=== PATIENT | female | born 1965 | race Caucasian/White ===

== ENCOUNTER 2017-10-02 14:47 | Emergency (ER) | payer OTHER ==
[~2017-10-02] VITALS: Ht 162.5 cm; Wt 86.2 kg
[~2017-10-02 14:47] MED LIST: ALTOPREV20 MG PO; AMLODIPINE BESY10 MG PO; DAYPRO600 M1 PO; ESIDREX,ORETIC,25 MG PO; LOPRESSOR25 MG PO; MELOXICAM7.5 MG PO; MOTRIN800 MG PO; PEPCID20 MG PO; PRILOSEC20 MG PO; TRAMADOL HCL50 MG PO; [UNRECOGNIZED DRUG - OTHER] PO
[2017-10-02] MEDS ORDERED: CO Q-1010 M2 PO (14:55)
[2017-10-02] MEDS ORDERED: VITAMIN E100 UNI3 PO (14:56)
[2017-10-02] MEDS ORDERED: VITAMIN D400 UNI1 PO (14:57)
[2017-10-02 17:04] VITALS: BP 150/92
== END 2017-10-02 17:19 | disposition home or self-care (01) ==
LOC: ED 14:47
DX: M25.532 Pain in left wrist (principal); I10 Essential (primary) hypertension; M54.2 Cervicalgia; Z98.890 Other specified postprocedural states; Z79.899 Other long term (current) drug therapy; Z91.040 Latex allergy status; V49.88XA Car occupant (driver) (passenger) injured in other specified transport accidents, initial encounter; Y93.89 Activity, other specified; Y92.413 State road as the place of occurrence of the external cause; Y99.9 Unspecified external cause status

== ENCOUNTER 2017-10-11 13:08 | Emergency (ER) | payer OTHER ==
[~2017-10-11] VITALS: Ht 162.5 cm; Wt 95.3 kg
[~2017-10-11 13:08] MED LIST changes: +CO Q-1010 M2 PO; +VITAMIN D400 UNI1 PO; +VITAMIN E100 UNI3 PO
[2017-10-11] MEDS ORDERED: NAPROSYN500 MG PO (13:34)
[2017-10-11] MEDS ORDERED: CHLORZOXAZONE500 M2 PO (13:34)
[2017-10-11 14:33] VITALS: BP 180/90
== END 2017-10-11 15:22 | disposition home or self-care (01) ==
LOC: ED 13:08
DX: R20.2 Paresthesia of skin (principal); R03.0 Elevated blood-pressure reading, without diagnosis of hypertension; M25.532 Pain in left wrist; M25.511 Pain in right shoulder; R20.0 Anesthesia of skin; Z91.040 Latex allergy status; Z79.899 Other long term (current) drug therapy

== ENCOUNTER → 2019-04-06 | Outpatient (CLI) | payer OTHER ==
[~2019-04-06] MED LIST changes: +CHLORZOXAZONE500 M2 PO; +NAPROSYN500 MG PO
== END | disposition home or self-care (01) ==
LOC: MAMMO 13:30
DX: Z12.31 Encounter for screening mammogram for malignant neoplasm of breast (principal)

== ENCOUNTER → 2019-05-18 | Outpatient (CLI) | payer OTHER | END | disposition home or self-care (01) | LOC: US 13:52 | DX: D17.79 Benign lipomatous neoplasm of other sites (principal); N60.01 Solitary cyst of right breast; N63.12 Unspecified lump in the right breast, upper inner quadrant; N63.21 Unspecified lump in the left breast, upper outer quadrant; N63.23 Unspecified lump in the left breast, lower outer quadrant; N64.89 Other specified disorders of breast ==

== ENCOUNTER → 2019-06-03 | Outpatient (CLI) | payer OTHER | END | disposition home or self-care (01) | LOC: RAD 09:07 | DX: M99.01 Segmental and somatic dysfunction of cervical region (principal); M99.02 Segmental and somatic dysfunction of thoracic region; M99.03 Segmental and somatic dysfunction of lumbar region ==

== ENCOUNTER → 2019-06-09 | Outpatient (CLI) | payer OTHER | END | disposition home or self-care (01) | LOC: US 07:30 | DX: K76.0 Fatty (change of) liver, not elsewhere classified (principal); R79.89 Other specified abnormal findings of blood chemistry ==

== ENCOUNTER → 2019-11-02 | Outpatient (CLI) | payer OTHER | END | disposition home or self-care (01) | LOC: RAD 11:02 | DX: M47.816 Spondylosis without myelopathy or radiculopathy, lumbar region (principal); M47.817 Spondylosis without myelopathy or radiculopathy, lumbosacral region; M48.061 Spinal stenosis, lumbar region without neurogenic claudication; M48.07 Spinal stenosis, lumbosacral region; M17.0 Bilateral primary osteoarthritis of knee ==

== ENCOUNTER → 2019-11-17 | Outpatient (CLI) | payer OTHER | END | disposition home or self-care (01) | LOC: US 10:56 | DX: N63.21 Unspecified lump in the left breast, upper outer quadrant (principal); N63.12 Unspecified lump in the right breast, upper inner quadrant; N60.01 Solitary cyst of right breast; N60.02 Solitary cyst of left breast ==

== ENCOUNTER → 2020-06-08 | Outpatient (CLI) | payer OTHER | END | disposition home or self-care (01) | LOC: MAMMO 10:28 | PROVIDERS: ATTEND Nurse Practitioner Women's Health | DX: Z12.31 Encounter for screening mammogram for malignant neoplasm of breast (principal); N60.01 Solitary cyst of right breast; D24.2 Benign neoplasm of left breast; D24.1 Benign neoplasm of right breast ==

== ENCOUNTER → 2020-09-19 | Outpatient (CLI) | payer OTHER | END | disposition home or self-care (01) | LOC: US 09-02 09:30 | PROVIDERS: ATTEND Internal Medicine | DX: K76.0 Fatty (change of) liver, not elsewhere classified (principal); R74.8 Abnormal levels of other serum enzymes ==

== ENCOUNTER 2021-03-17 09:53 | Emergency (ER) | payer OTHER ==
[~2021-03-17] VITALS: Wt 98.4 kg
[2021-03-17 10:02] VITALS: BP 130/70
[2021-03-17] MEDS ORDERED: PREDNISONE50 MG PO (12:07)
== END 2021-03-17 12:29 | disposition home or self-care (01) ==
LOC: ED 09:53
DX: M54.31 Sciatica, right side (principal); Z88.8 Allergy status to other drugs, medicaments and biological substances; Z91.040 Latex allergy status; Z79.899 Other long term (current) drug therapy

== ENCOUNTER → 2022-05-22 | Outpatient (CLI) | payer OTHER ==
[~2022-05-22] MED LIST changes: +PREDNISONE50 MG PO
== END | disposition home or self-care (01) ==
LOC: MAMMO 05-15 16:30
PROVIDERS: ATTEND Internal Medicine
DX: Z12.31 Encounter for screening mammogram for malignant neoplasm of breast (principal); R92.1 Mammographic calcification found on diagnostic imaging of breast

== ENCOUNTER 2022-10-21 18:58 | Inpatient (IN) | payer OTHER ==
[~2022-10-21] VITALS: Ht 160 cm; Wt 111.3 kg
[2022-10-21 20:22] VITALS: BP 134/73
[2022-10-21 20:45] LABS: BASO % 0.6 % (0.0-1.0); EOS % 0.2 % (1.0-4.0); HEMATOCRIT 39.1 % (37.0-47.0); LYMPH # 0.6 10*3/uL (1.3-4.4); LYMPH % 8.9 % (27.0-41.0); MEAN CELL VOLUME 91.4 fl (81.0-99.0); MEAN CORPUSCULAR HGB 31.1 pg (27.0-31.0); MONO # 0.4 10*3/uL (0.1-1.0); MONO % 6.6 % (3.0-9.0); NEUT # 5.1 10*3/uL (2.3-7.9); NEUT % 82.9 % (47.0-73.0); PLATELET COUNT AUTOMATED 284 10*3/uL (130-400); RED BLOOD COUNT 4.28 10*6/uL (4.10-5.10); RED CELL DISTRI WIDTH 12.7 % (0-14.5); WHITE BLOOD COUNT 6.2 10*3/uL (4.8-10.8)
[2022-10-21 20:56] LABS: ACT PARTIAL THROMBO TIME 32.3 SECONDS (20.0-32.1); INTERNATIONAL NORM RATIO 1.1 (2.0-3.5)
[2022-10-21 21:03] LABS: ALKALINE PHOSPHATASE 86 U/L (46-116); BUN 9 mg/dl (9-23); CHLORIDE 94 mmol/L (98-107); POTASSIUM 3.4 mmol/L (3.4-5.1); SGPT/ALT 222 U/L (10-49); TOTAL PROTEIN 7.8 gm/dL (6.0-8.0)
[2022-10-21 23:34] VITALS: BP 129/57
[2022-10-22 01:30] LABS: BILIRUBIN Negative (Negative); BLOOD Negative (Negative); CLARITY Cloudy (Clear); COLOR Yellow (Yellow); GLUCOSE Negative (Negative); KETONE Trace (Negative); LEUKO ESTERASE 2+ (Negative); NITRITE Negative (Negative); PH 5.5 (4.5-8.0); SPECIFIC GRAVITY 1.015 (1.001-1.030); UROBILINOGEN 0.2 E.U./dl (0.0-1.0)
[2022-10-22 01:43] LABS: BACTERIA 3+; WBC 21-30 wbc/hpf (0-5)
[2022-10-22] MEDS ORDERED: ACETAMINOPHEN500 M4 PO (02:37)
[2022-10-22] MEDS ORDERED: GABAPENTIN800 MG PO (02:38)
[2022-10-22] MEDS ORDERED: AMLODIPINE BESY10 MG PO (02:39)
[2022-10-22] MEDS ORDERED: DULOXETINE HCL30 MG PO (02:40)
[2022-10-22] MEDS ORDERED: HYDROCHLOROTHIA25 M1 PO (02:41)
[2022-10-22] MEDS ORDERED: BUSPIRONE HCL15 MG PO (02:43)
[2022-10-22] MEDS ORDERED: HYDROCODONE-AC1 EAC1 PO (02:44)
[2022-10-22] MEDS ORDERED: LOSARTAN POTAS100 M1 PO (02:45)
[2022-10-22] MEDS ORDERED: OMEGA-3-ACID ETH1 GM PO (02:46)
[2022-10-22] MEDS ORDERED: ATORVASTATIN CA10 M1 PO (02:46)
[2022-10-22 03:27] LABS: BASO % 0.4 % (0.0-1.0); EOS % 0.2 % (1.0-4.0); HEMATOCRIT 39.3 % (37.0-47.0); LYMPH # 0.6 10*3/uL (1.3-4.4); LYMPH % 12.3 % (27.0-41.0); MEAN CELL VOLUME 93.8 fl (81.0-99.0); MEAN CORPUSCULAR HGB 30.8 pg (27.0-31.0); MEAN CORPUSCULAR HGB CONC 32.8 g/dl (33.0-37.0); MEAN PLATELET VOLUME 8.8 fl (9.6-12.3); MONO # 0.3 10*3/uL (0.1-1.0); MONO % 5.6 % (3.0-9.0); NEUT # 4.1 10*3/uL (2.3-7.9); NEUT % 80.9 % (47.0-73.0); PLATELET COUNT AUTOMATED 270 10*3/uL (130-400); RED BLOOD COUNT 4.19 10*6/uL (4.10-5.10)
[2022-10-22 03:48] VITALS: BP 142/103
[2022-10-22 03:52] LABS: FREE T4 1.06 ng/dl (0.89-1.76); POTASSIUM 3.3 mmol/L (3.4-5.1); TOTAL PROTEIN 7.6 gm/dL (6.0-8.0)
[2022-10-22 04:30] VITALS: BP 134/61
[2022-10-22] MEDS ORDERED: CENTRAVITES 501 EACH PO (04:53)
[2022-10-22] MEDS ORDERED: OLANZAPINE10 MG PO (05:38)
[2022-10-22 08:00] VITALS: BP 129/68
[2022-10-22 12:00] VITALS: BP 124/63
[2022-10-22 16:00] VITALS: BP 108/93
[2022-10-22 20:00] VITALS: BP 101/62
[2022-10-23] VITALS: BP 118/59
[2022-10-23 08:00] VITALS: BP 127/60
[2022-10-23 08:19] LABS: BASO % 1.2 % (0.0-1.0); EOS # 0.1 10*3/uL (0.0-0.4); EOS % 1.4 % (1.0-4.0); HEMATOCRIT 37.9 % (37.0-47.0); LYMPH # 0.8 10*3/uL (1.3-4.4); LYMPH % 22.9 % (27.0-41.0); MEAN CELL VOLUME 94.8 fl (81.0-99.0); MEAN CORPUSCULAR HGB 31.3 pg (27.0-31.0); MONO # 0.5 10*3/uL (0.1-1.0); MONO % 13.3 % (3.0-9.0); NEUT # 2.1 10*3/uL (2.3-7.9); NEUT % 60.3 % (47.0-73.0); PLATELET COUNT AUTOMATED 244 10*3/uL (130-400); WHITE BLOOD COUNT 3.5 10*3/uL (4.8-10.8)
[2022-10-23 11:26] LABS: ALKALINE PHOSPHATASE 130 U/L (46-116); BUN 11 mg/dl (9-23); CHLORIDE 100 mmol/L (98-107); POTASSIUM 3.5 mmol/L (3.4-5.1); SGPT/ALT 372 U/L (10-49)
[2022-10-23 12:00] VITALS: BP 131/68
[2022-10-23 16:00] VITALS: BP 114/63
[2022-10-23 20:00] VITALS: BP 130/88
[2022-10-24] VITALS: BP 133/73
[2022-10-24 07:34] LABS: BASO % 0.5 % (0.0-1.0); EOS # 0.2 10*3/uL (0.0-0.4); EOS % 3.7 % (1.0-4.0); HEMATOCRIT 36.9 % (37.0-47.0); LYMPH % 25.7 % (27.0-41.0); MEAN CELL VOLUME 93.9 fl (81.0-99.0); MEAN CORPUSCULAR HGB CONC 33.1 g/dl (33.0-37.0); MEAN PLATELET VOLUME 9.5 fl (9.6-12.3); MONO # 0.4 10*3/uL (0.1-1.0); MONO % 9.2 % (3.0-9.0); NEUT # 2.4 10*3/uL (2.3-7.9); NEUT % 59.7 % (47.0-73.0); PLATELET COUNT AUTOMATED 313 10*3/uL (130-400); RED BLOOD COUNT 3.93 10*6/uL (4.10-5.10); RED CELL DISTRI WIDTH 12.8 % (0-14.5)
[2022-10-24 08:00] VITALS: BP 116/60
[2022-10-24 08:26] LABS: ALKALINE PHOSPHATASE 142 U/L (46-116); BUN 9 mg/dl (9-23); CHLORIDE 100 mmol/L (98-107); POTASSIUM 3.9 mmol/L (3.4-5.1); SGPT/ALT 331 U/L (10-49); TOTAL PROTEIN 7.3 gm/dL (6.0-8.0)
[2022-10-24 12:00] VITALS: BP 128/62
[2022-10-24] MEDS ORDERED: OMNICEF300 MG PO (12:05)
[2022-10-25 08:30] LABS: HBSAG Negative (Negative); HEP B CORE AB, IGM Negative (Negative); HEPATITIS C ANTIBODY Non Reactive (Non Reactive)
== END 2022-10-24 13:56 | disposition home or self-care (01) | DRG 720 ==
LOC: ED 18:58 → 5E 10-22 02:34 → EDHOLD 10-22 02:34 → 5E 10-22 03:42
PROVIDERS: Emergency Medicine; Internal Medicine; Student in an Organized Health Care Education/Training Program; ADMIT Internal Medicine; ATTEND Internal Medicine
DX: A41.9 Sepsis, unspecified organism (principal); N30.00 Acute cystitis without hematuria; F41.9 Anxiety disorder, unspecified; R73.9 Hyperglycemia, unspecified; E87.1 Hypo-osmolality and hyponatremia; K76.0 Fatty (change of) liver, not elsewhere classified; I10 Essential (primary) hypertension; E78.5 Hyperlipidemia, unspecified; G89.29 Other chronic pain; R25.1 Tremor, unspecified; R74.01 Elevation of levels of liver transaminase levels; E87.8 Other disorders of electrolyte and fluid balance, not elsewhere classified; F32.A Depression, unspecified; G47.09 Other insomnia; M54.42 Lumbago with sciatica, left side; M54.41 Lumbago with sciatica, right side; B96.89 Other specified bacterial agents as the cause of diseases classified elsewhere; Z88.8 Allergy status to other drugs, medicaments and biological substances; Z91.040 Latex allergy status; Z83.3 Family history of diabetes mellitus; Z82.49 Family history of ischemic heart disease and other diseases of the circulatory system; Z82.3 Family history of stroke

== ENCOUNTER → 2022-10-31 | Outpatient (CLI) | payer OTHER ==
[~2022-10-31] MED LIST changes: +ACETAMINOPHEN500 M4 PO; +ATORVASTATIN CA10 M1 PO; +BUSPIRONE HCL15 MG PO; +CENTRAVITES 501 EACH PO; +DULOXETINE HCL30 MG PO; +GABAPENTIN800 MG PO; +HYDROCHLOROTHIA25 M1 PO; +HYDROCODONE-AC1 EAC1 PO; +LOSARTAN POTAS100 M1 PO; +OLANZAPINE10 MG PO; +OMEGA-3-ACID ETH1 GM PO; +OMNICEF300 MG PO
[2022-10-31 12:51] LABS: BASO # 0.1 10*3/uL (0.0-0.1); EOS # 0.2 10*3/uL (0.0-0.4); EOS % 2.4 % (1.0-4.0); LYMPH # 1.7 10*3/uL (1.3-4.4); LYMPH % 27.5 % (27.0-41.0); MEAN CELL VOLUME 91.5 fl (81.0-99.0); MEAN CORPUSCULAR HGB CONC 33.9 g/dl (33.0-37.0); MEAN PLATELET VOLUME 8.8 fl (9.6-12.3); MONO # 0.6 10*3/uL (0.1-1.0); MONO % 9.5 % (3.0-9.0); NEUT # 3.6 10*3/uL (2.3-7.9); NEUT % 57.8 % (47.0-73.0); PLATELET COUNT AUTOMATED 634 10*3/uL (130-400); RED BLOOD COUNT 4.48 10*6/uL (4.10-5.10); RED CELL DISTRI WIDTH 12.5 % (0-14.5); WHITE BLOOD COUNT 6.2 10*3/uL (4.8-10.8)
[2022-10-31 13:18] LABS: ALKALINE PHOSPHATASE 95 U/L (46-116); BUN 8 mg/dl (9-23); CHLORIDE 100 mmol/L (98-107); POTASSIUM 3.7 mmol/L (3.4-5.1); SGPT/ALT 164 U/L (10-49)
== END | disposition home or self-care (01) ==
LOC: LAB 12:32
PROVIDERS: ATTEND Internal Medicine
DX: R74.01 Elevation of levels of liver transaminase levels (principal)